=== PATIENT | male | born 1980 | race American Indian/Alaskan Native ===

== ENCOUNTER 2019-04-05 19:56 | Observation (INO) | payer OTHER ==
[2019-04-05] MEDS ORDERED: ASPIRIN PO ONE (20:12)
[2019-04-05 20:59] LABS: Basophils # (Auto) 0.1 K/mm3 (0.0-0.1); Basophils % (Auto) 0.7 % (0.0-1.8); Eosinophils # (Auto) 0.3 K/mm3 (0.0-0.4); Eosinophils % (Auto) 3.4 % (0.0-4.3); Hematocrit 43.4 % (35.5-45.6); Hemoglobin 14.5 gm/dl (11.8-15.2); Lymphocytes # (Auto) 2.3 K/mm3 (1.2-5.4); Lymphocytes % (Auto) 25.9 % (13.4-35.0); Mean Corpuscular HGB Conc 34 % (32-34); Mean Corpuscular Volume 91 fl (84-94); Monocytes # (Auto) 0.6 K/mm3 (0.0-0.8); Monocytes % (Auto) 6.3 % (0.0-7.3); Platelet Count 244 K/mm3 (140-440); Red Blood Count 4.78 M/mm3 (3.65-5.03); Red Cell Distribution Width 14.1 % (13.2-15.2)
--- NOTE | 2019-04-05 21:09 | XRay Report ---
CHEST 1 VIEW INDICATION / CLINICAL INFORMATION: Chest Pain. COMPARISON: None available. FINDINGS: SUPPORT DEVICES: None. HEART / MEDIASTINUM: No significant abnormality. LUNGS / PLEURA: No significant pulmonary or pleural abnormality. No pneumothorax. ADDITIONAL FINDINGS: No significant additional findings. IMPRESSION: 1. No acute findings. Signer Name: Manish Lam MD Signed: 04/05/2019 9:05 PM Workstation Name: [id number]
[2019-04-05 21:12] LABS: BUN/Creatinine Ratio 14; Blood Urea Nitrogen 15 mg/dL (9-20); Calcium 9.3 mg/dL (8.4-10.2); Hemolysis Index 19
[2019-04-05] MEDS ORDERED: NITRO-BID 2% TP ONE ×2 (21:30→22:50)
--- NOTE | 2019-04-05 21:35 | Emergency Department Report ---
HPI - General Chief Complaint: Chest Pain Time Seen by Provider: 04/05/19 21:21 - HPI HPI: Room 23 The patient is a 38-year-old male presenting with chief complaint chest pain. The patient says he just finished eating dinner and while walking up stairs he developed intermittent tightness in his left chest. Patient admits to shortness of breath but denies nausea/vomiting or diaphoresis. Patient states she's never had a stress test or cardiac catheterization Location: [See above] Duration: [See above] Quality: [See above] Severity: [See above] Modifying factors: [see above] Context: [see above] Mode of transportation: [not driving] ED Past Medical Hx - Past Medical History Previous Medical History?: No Hx Asthma: Yes - Surgical History Past Surgical History?: No - Family History Family history: no significant - Social History Smoking Status: Never Smoker Substance Use Type: Marijuana ED Review of Systems ROS: Stated complaint: CHEST TIGHTNESS Other details as noted in HPI Constitutional: denies: diaphoresis Eyes: denies: eye pain ENT: denies: throat pain Respiratory: shortness of breath Cardiovascular: chest pain Endocrine: no symptoms reported Gastrointestinal: denies: nausea, vomiting Genitourinary: denies: dysuria Musculoskeletal: denies: back pain Neurological: denies: headache Physical Exam - Physical Exam Vital Signs: Vital Signs 04/05/19 20:08 Temperature 98.4 F Pulse Rate 70 Respiratory 18 Rate Blood Pressure 121/85 O2 Sat by Pulse 97 Oximetry Physical Exam: GENERAL: The patient is well-developed well-nourished male lying on stretcher not appearing to be in acute distress. [] HEENT: Normocephalic. Atraumatic. Extraocular motions are intact. Patient has moist mucous membranes. NECK: Supple. Trachea midline CHEST/LUNGS: Clear to auscultation. There is no respiratory distress noted. HEART/CARDIOVASCULAR: Regular. There is no tachycardia. There is no gallop rub or murmur. ABDOMEN: Abdomen is soft, nontender. Patient has normal bowel sounds. There is no abdominal distention. SKIN: There is no rash. There is no edema. There is no diaphoresis. NEURO: The patient is awake, alert, and oriented. The patient is cooperative. The patient has normal speech MUSCULOSKELETAL: There is no evidence of acute injury. ED Course Vital Signs 04/05/19 20:08 Temperature 98.4 F Pulse Rate 70 Respiratory 18 Rate Blood Pressure 121/85 O2 Sat by Pulse 97 Oximetry ED Medical Decision Making - Lab Data Result diagrams: 04/05/19 20:44 04/05/19 20:44 Laboratory Tests 04/05/19 04/05/19 20:44 20:44 WBC 8.8 RBC 4.78 Hgb 14.5 Hct 43.4 MCV 91 MCH 30 MCHC 34 RDW 14.1 Plt Count 244 Lymph % (Auto) 25.9 Otoe % (Auto) 6.3 Eos % (Auto) 3.4 Baso % (Auto) 0.7 Lymph # 2.3 Otoe # 0.6 Eos # 0.3 Baso # 0.1 Seg Neutrophils % 63.7 Seg Neutrophils # 5.6 Sodium 140 Potassium 4.6 Chloride 102.3 Carbon Dioxide 28 Anion Gap 14 BUN 15 Creatinine 1.1 Estimated GFR > 60 BUN/Creatinine Ratio 14 Glucose 92 Calcium 9.3 Troponin T < 0.010 - EKG Data -: EKG Interpreted by Me EKG shows normal: sinus rhythm Rate: normal - Radiology Data Radiology results: report reviewed (chest x-ray), image reviewed (chest x-ray) interpreted by me: Chest x-ray-no focal infiltrates, no pneumothorax [facility] [address] [place] [address] XRay Report Signed Patient: KARLA NOLAN MR#: [id number] : 1980 Acct:[id number] Age/Sex: 38 / M ADM Date: 04/05/19 Loc: ED Attending Dr: Ordering Physician: ED MD KENDRA Date of Service: 04/05/19 Procedure(s): XR chest 1V ap Accession Number(s): [id number] cc: ED MD KENDRA Fluoro Time In Minutes: CHEST 1 VIEW INDICATION / CLINICAL INFORMATION: Chest Pain. COMPARISON: None available. FINDINGS: SUPPORT DEVICES: None. HEART / MEDIASTINUM: No significant abnormality. LUNGS / PLEURA: No significant pulmonary or pleural abnormality. No pneumothorax. ADDITIONAL FINDINGS: No significant additional findings. IMPRESSION: 1. No acute findings. Signer Name: Manish Lam MD Signed: 04/05/2019 9:05 PM Workstation Name: [id number] Transcribed By: Dictated By: Manish Lam MD Electronically Authenticated By: Manish Lam MD Signed Date/Time: 04/05/192104 DD/ 03 TD/TT: - Differential Diagnosis ACS, pericarditis, GERD Critical care attestation.: If time is entered above; I have spent that time in minutes in the direct care of this critically ill patient, excluding procedure time. ED Disposition Clinical Impression: Chest pain Disposition: OP ADMIT IP TO THIS HOSP Is pt being admited?: Yes Does the pt Need Aspirin: Yes Condition: Fair Instructions: Chest Pain (ED) Time of Disposition: 21:36 (hospitalist paged (Dr. Madhavi Burt))
[2019-04-05] MEDS ORDERED: TYLENOL PO PRN (22:19)
[2019-04-05] MEDS ORDERED: MORPHINE IV PRN (22:19)
[2019-04-05] MEDS ORDERED: SODIUM CHLORIDE FLUSH SYRINGE 10 ML IV PRN (22:19)
[2019-04-05] MEDS ORDERED: ZOFRAN IV PRN (22:19)
[2019-04-05] MEDS ORDERED: PROVENTIL IH PRN (22:19)
--- NOTE | 2019-04-05 22:27 | History and Physical Report ---
History of Present Illness Date of examination: 04/05/19 History of present illness: 38 year old man with history of asthma comes to the emergency room with complaints of chest pain. Pain is in the left substernal area is which she described as a tightness, intermittent 1 minute, intensity 5/10, radiating to left arm, cannot identify exacerbating or relieving factors. Denies to nausea and vomiting, palpitation, shortness of breath. Also complaining of abdominal pain in the epigastric, right upper quadrant that he has over one year, intermittent, unclear how long it lasts for, intensity or 10, cannot identify ex acerbating or relieving factors Review of systems Constitutional: no weight loss, chills, fever Ears, eyes, nose, mouth and throat: no nasal congestion, no nasal discharge, no sinus pressure, no vision change, no red eye. Neck: No neck pain or rigidity. Cardiovascular: no palpitations Respiratory: no cough, shortness of breath Gastrointestinal: no hematochezia Genitourinary : no frequency , no hematuria Musculoskeletal: no joint swelling or muscle ache Integumentary: no rash, no pruritis Neurological: no parathesias, no focal weakness Endocrine: no cold or heat intolerance, no polyuria or polydipsia Hematologic/Lymphatic: no easy bruising, no easy bleeding, no gland swelling Allergic/Immunologic: no urticaria, no angioedema. PAST MEDICAL HISTORY:asthma PAST SURGICAL HISTORY: None SOCIAL HISTORY: Denies alcohol, drugs, tobacco FAMILY HISTORY: Hypertension Medications and Allergies Allergies Allergy/AdvReac Type Severity Reaction Status Date / Time No Known Allergies Allergy Verified 04/05/19 21:22 Home Medications Medication Instructions Recorded Confirmed Last Taken Type No Known Home Medications [No 04/05/19 04/05/19 Unknown History Reported Home Medications] Active Meds: Active Medications Acetaminophen (Tylenol) 650 mg PO Q4H PRN PRN Reason: Pain MILD(1-3)/Fever >100.5/MAR Albuterol (Proventil) 2.5 mg IH Q4HRT PRN PRN Reason: Shortness Of Breath Enoxaparin Sodium (Lovenox) 30 mg SUB-Q QDAY ALLY Morphine Sulfate (Morphine) 2 mg IV Q4H PRN PRN Reason: Pain, Moderate (4-6) Ondansetron HCl (Zofran) 4 mg IV Q8H PRN PRN Reason: Nausea And Vomiting Sodium Chloride (Sodium Chloride Flush Syringe 10 Ml) 10 ml IV BID ALLY Sodium Chloride (Sodium Chloride Flush Syringe 10 Ml) 10 ml IV PRN PRN PRN Reason: LINE FLUSH Exam - Physical Exam Narrative exam: General Apperance: The patient lying in bed, breathing comfortable HEENT: Normocephalic, atraumatic. Pupils equally round and reactive to light, EOMI, no sclericterus or JVD or thyromegaly or nodule. , no carotid bruit, mucous membranes moist, no exudate or erythema Heart: S1-S2, regular is rhythm Lungs: Clear to auscultation bilaterally, breathing comfortable Abdomen: Positive bowel sounds, soft, tender in the right upper quadrant, nondistended, no organomegaly Extremities: No edema cyanosis clubbing Skin: no rash, nodule, warm and dry Neuro: cranial nerves 2-12 intact, speech is fluent, motor/sensory intact - Constitutional Vitals: Temp Pulse Resp BP Pulse Ox 98.4 F 70 18 121/85 97 04/05/19 20:08 04/05/19 20:08 04/05/19 20:08 04/05/19 20:08 04/05/19 20:08 Results - Labs CBC & Chem 7: 04/05/19 20:44 04/05/19 20:44 - Imaging and Cardiology EKG: image reviewed Chest x-ray: image reviewed Assessment and Plan Assessment Chest Pain Abdominal pain Asthma, stable Plan Admit to medicine Check cardiac enzymes, stress test Check CT abdomen and pelvis, IV morphine DVT prophalaxis
[2019-04-05] MEDS ORDERED: ASPIRIN ONE (22:50)
--- NOTE | 2019-04-06 00:09 | Cat Scan Report ---
CT ABDOMEN AND PELVIS WITHOUT CONTRAST HISTORY: Right upper quadrant abdominal pain. COMPARISON: No relevant prior imaging study available. TECHNIQUE: Axial, coronal and sagittal CT imaging of the abdomen and pelvis was performed without co ntrast. Lack of intravenous contrast limits evaluation of the vascular and solid organs. All CT sca ns at this location are performed using CT dose reduction for ALARA by means of automated exposure co ntrol. FINDINGS: Suboptimal patient positioning limits the scan. Portions of the anterior abdomen are excluded. LOWER CHEST: No significant abnormality. LIVER: No significant abnormality. BILIARY: The gallbladder is absent. No significant abnormality. PANCREAS: No significant abnormality. SPLEEN: No significant abnormality. ADRENALS: No significant abnormality. 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 GI TRACT: No significant abnormality of the stomach, small bowel or colon. Unremarkable appendix. PERITONEUM: No free fluid. No free air. No fluid collection. LYMPH NODES: No significant adenopathy. VASCULATURE: The aorta is normal in caliber with mild atherosclerosis. URINARY BLADDER: No significant abnormality. REPRODUCTIVE ORGANS: No significant abnormality. ADDITIONAL FINDINGS: None. SKELETAL SYSTEM: No significant abnormality. IMPRESSION: No acute abnormality of the abdomen or pelvis. Signer Name: Joss Mcginnis MD Signed: 04/06/2019 12:04 AM Workstation Name: [email or web address]
[2019-04-06 06:11] LABS: Basophils % (Auto) 0.8 % (0.0-1.8); Eosinophils # (Auto) 0.3 K/mm3 (0.0-0.4); Eosinophils % (Auto) 4.2 % (0.0-4.3); Hematocrit 43.1 % (35.5-45.6); Hemoglobin 14.2 gm/dl (11.8-15.2); Lymphocytes # (Auto) 1.4 K/mm3 (1.2-5.4); Mean Corpuscular HGB Conc 33 % (32-34); Mean Corpuscular Volume 91 fl (84-94); Monocytes # (Auto) 0.4 K/mm3 (0.0-0.8); Monocytes % (Auto) 6.9 % (0.0-7.3); Platelet Count 206 K/mm3 (140-440); Red Blood Count 4.71 M/mm3 (3.65-5.03); Red Cell Distribution Width 14.2 % (13.2-15.2)
[2019-04-06 06:27] LABS: Creatine Kinase MB 2.7 ng/mL (0.0-4.0)
[2019-04-06 06:37] LABS: BUN/Creatinine Ratio 20; Blood Urea Nitrogen 16 mg/dL (9-20); Calcium 8.7 mg/dL (8.4-10.2); Hemolysis Index 8
[2019-04-06] MEDS ORDERED: SODIUM CHLORIDE FLUSH SYRINGE 10 ML IV SCH (10:00)
[2019-04-06] MEDS ORDERED: LOVENOX SUB-Q SCH ×2 (10:00)
[2019-04-06 11:33] VITALS: BP 132/89
--- NOTE | 2019-04-06 12:38 | Discharge Summary ---
Providers - Providers Date of Admission: 04/05/19 22:19 Date of discharge: 04/06/19 Attending physician: SAMEER ALVARADO Primary care physician: [facility] Hospitalization Reason for admission: cp Condition: Fair Hospital course: 38 year old man with history of asthma comes to the emergency room with complaints of chest pain. Pain was in the left substernal area in which he described as a tightness, intermittent 1 minute, intensity 5/10, radiating to left arm, cannot identify exacerbating or relieving factors. Denied to nausea and vomiting, palpitation, shortness of breath. Also, the patient complained of abdominal pain in the epigastric, right upper quadrant that he has over one year. CT scan of the abdomen and pelvis was found to be negative. Patient also underwent stress test which was negative. Etiology of chest pain likely secondary to GERD. Patient reports he does have trouble with heartburn. Dedicated discharge time 32 minutes. Disposition: - TO HOME OR SELFCARE Time spent for discharge: 32 - Discharge Diagnoses (1) Chest pain Status: Acute Core Measure Documentation - Palliative Care Palliative Care/ Comfort Measures: Not Applicable - Core Measures Any of the following diagnoses?: none Exam - Constitutional Vitals: Temp Pulse Resp BP Pulse Ox 97.8 F 75 14 132/89 99 04/06/19 04:12 04/06/19 11:31 04/06/19 11:31 04/06/19 10:20 04/06/19 11:55 General appearance: Present: no acute distress, well-nourished - EENT Eyes: Present: PERRL ENT: hearing intact, clear oral mucosa - Neck Neck: Present: supple, normal ROM - Respiratory Respiratory effort: normal Respiratory: bilateral: CTA - Cardiovascular Heart Sounds: Present: S1 & S2. Absent: rub, click - Extremities Extremities: pulses symmetrical, No edema Peripheral Pulses: within normal limits - Abdominal General gastrointestinal: Present: soft, non-tender, non-distended, normal bowel sounds Male genitourinary: Present: normal - Integumentary Integumentary: Present: clear, warm, dry - Musculoskeletal Musculoskeletal: gait normal, strength equal bilaterally - Psychiatric Psychiatric: appropriate mood/affect, intact judgment & insight - Neurologic Neurologic: CNII-XII intact, moves all extremities Plan Activity: no restrictions Weight Bearing Status: Full Weight Bearing Diet: regular Follow up with: ISABELLA,NOTREES [Primary Care Provider] - 7 Days
--- NOTE | 2019-04-07 00:36 | Treadmill Report ---
REFERRING PHYSICIAN: Dr. Madhavi Burt, hospitalist. REVIEWED AND DICTATED BY: Dr. Francisco Javier Torres. A 38-year-old obese -[place] gentleman with history of bronchial asthma, chest pains, myocardial infarction ruled out, underwent exercise stress test as per the standard [facility] protocol. PROCEDURE: The patient walked on the treadmill for a total of 9 minutes and 13 seconds and his peak heart rate was 161 per minute (88% of predicted maximum heart rate) and peak systolic blood pressure was 171 mmHg. During exercise stress test, the patient did not have any chest pain. There was no evidence of ischemia in the stress EKG. The patient was stable in the recovery. CONCLUSIONS: 1. Good exercise tolerance. 2. No chest pain. 3. No evidence of ischemia in the stress EKG. 4. No arrhythmias. 5. Negative exercise stress test at 88% of predicated maximal heart rate. [facility]# [id number] [facility]
== END 2019-04-06 13:07 | disposition home or self-care (01) ==
LOC: ED 19:56 → 4A 22:19
PROVIDERS: ADMIT Internal Medicine; ATTEND Hospitalist
DX: R07.2 Precordial pain (principal); J45.909 Unspecified asthma, uncomplicated
CPT/HCPCS: 36415; 71045; 74176; 80048; 82550; 82553; 84484; 85025; 93005; 93010; 93017; 96372; 99291; G0378; J1650